=== PATIENT | male | born 1995 | race Caucasian/White ===

== ENCOUNTER 2021-03-11 18:04 | Emergency (ER) | payer SELFPAY ==
[~2021-03-11 18:04] MED LIST: CEFANEX500 MG PO; HYDROCODONE BIT1 T11 PO; IBU-8800 MG PO; KEFLEX500 MG PO; MOTRIN400 MG PO; NAPROSYN500 MG PO; SEPTDS PO
[2021-03-11] MEDS ORDERED: SEPTDS PO (19:04)
== END 2021-03-11 19:08 | disposition home or self-care (01) ==
LOC: ED 18:04
DX: L72.8 Other follicular cysts of the skin and subcutaneous tissue (principal)